=== PATIENT | female | born 1955 ===

== ENCOUNTER 2018-07-16 18:47 | Emergency (ER) | payer MEDICARE, MEDICAID ==
[2018-07-16 18:47] VITALS: BMI 29.0
[2018-07-16 19:59] LABS: BASO # 0.1 K/uL (0.0-0.2); BASO % 0.5 % (0.0-2.0); EOS % 0.1 % (0.0-4.0); HEMOGLOBIN 13.8 g/dL (12.0-16.0); LYMPH # 1.6 K/uL (1.0-4.3); LYMPH % 14.1 % (20.0-40.0); MEAN CELL VOLUME 79.3 fl (81.0-99.0); MEAN CORPUSCULAR HEMOGLOBIN 25.7 pg (27.0-31.0); MEAN CORPUSCULAR HGB CONC 32.4 g/dL (33.0-37.0); MEAN PLATELET VOLUME 8.2 fl (7.2-11.7); MONO # 1.1 K/uL (0.0-0.8); MONO % 9.7 % (0.0-10.0); NEUT # 8.3 K/uL (1.8-7.0); NEUT % 75.6 % (50.0-75.0); RBC 5.37 Mil/uL (3.80-5.20); RED CELL DISTRIBUTION WIDTH 16.2 % (11.5-14.5)
[2018-07-16 20:07] LABS: ALB/GLOB RATIO 1.1 (1.0-2.1); ALBUMIN 4.8 g/dL (3.5-5.0); ALT/SGPT 32 U/L (9-52); AST/SGOT 48 U/L (14-36); BLOOD UREA NITROGEN 28 mg/dl (7-17); CALCIUM 9.5 mg/dL (8.4-10.2); GFR NON-AFRICAN AMERICAN 56
[2018-07-16 20:15] LABS: SQUAMOUS EPITHIAL 2 /hpf (0-5); URINE BACTERIA OCC (<OCC); URINE BILIRUBIN NEGATIVE (NEGATIVE); URINE BLOOD NEGATIVE (NEGATIVE); URINE CLARITY CLEAR (Clear); URINE COLOR YELLOW (YELLOW); URINE GLUCOSE (UA) NEG (NEGATIVE); URINE LEUKOCYTE ESTERASE NEG Leu/uL (Negative); URINE PROTEIN NEGATIVE (NEGATIVE)
[2018-07-16 20:35] LABS: B-TYPE NATRIURETIC PEPTIDE 36.2 pg/ml (0-900)
[2018-07-16 20:38] LABS: TROPONIN I 0.013 ng/mL (0.00-0.120)
--- NOTE | 2018-07-16 21:20 | ED PDOC ---
HPI: SOB/CHF/COPD Time Seen by Provider: 07/16/18 19:14 Chief Complaint (Nursing): Dizziness/Lightheaded Chief Complaint (Provider): Dizziness/Lightheaded History Per: Patient History/Exam Limitations: no limitations Onset/Duration Of Symptoms: Sudden Onset Current Symptoms Are (Timing): Still Present Additional Complaint(s): 63 year old female with past history of hypertension, anxiety, and depression, presents to the emergency department for an evaluation of high blood pressure associated with abdominal pain, palpitations, and shortness of breath that started 2 hours prior to arrival. At present, she reports resolution of the abdominal pain but additionally reports dyspnea on exertion and orthopnea. Patient states she is compliant with her blood pressure medications. She checked pressure upon onset then notes systolic at 200mmHg, subsequently, taking an ext ra dose of medication. Blood pressure is presently improved in ED. Otherwise, she does not offer further complaints. PCP: Dr. Manuel Barrios Past Medical History Reviewed: Historical Data, Nursing Documentation, Vital Signs Vital Signs: Last Vital Signs Temp 98 F 07/16/18 18:49 Pulse 93 H 07/16/18 19:17 Resp 17 07/16/18 19:17 BP 153/82 H 07/16/18 19:17 Pulse Ox 100 07/16/18 19:17 - Medical History PMH: Anxiety, Asthma, COPD, Diabetes, HTN, Hypercholesterolemia Denies: Arthritis, CHF, Hypothyroidism, Chronic Kidney Disease, Rheumatoid Arthritis - Family History Family History: States: Unknown Family Hx - Social History Current smoker - smoking cessation education provided: Yes SMOKER/PACKS PER DAY:: 1 - Home Medications Home Medications: Ambulatory Orders Medication Instructions Recorded Enalapril Maleate/Hydrochlor 1 tab PO DAILY 10/28/14 [Enalapril/Hctz 10 mg-25 mg] Escitalopram [Lexapro] 20 mg PO DAILY 10/28/14 Esomeprazole Magnesium [Nexium] 40 mg PO DAILY 10/28/14 QUEtiapine [Seroquel XR] 400 mg PO HS 10/28/14 Zolpidem Tartrate [Ambien] 10 mg PO HS PRN 10/28/14 Albuterol 0.083% [Albuterol 0.083% 3 ml IH Q4 PRN #30 neb 10/29/14 Inhal [place] (2.5 mg/3 ml) UD] Clobetasol Propionate 1 appl TOP DAILY 04/09/15 Ciprofloxacin [Cipro] 500 mg PO Q12H #24 tab 04/10/15 Metronidazole 500 mg PO Q8H #36 tab 04/10/15 Albuterol HFA [Ventolin HFA 90 1 - 2 puff IH Q6 PRN #1 inhaler 07/16/18 mcg/actuation (8 g)] Azithromycin [Zithromax] 250 mg PO QAM #1 pkg 07/16/18 Methylprednisolone [Medrol Dosepak] 4 mg PO ASDIR #1 pkg 07/16/18 - Allergies Allergies/Adverse Reactions: Allergies Allergy/AdvReac Type Severity Reaction Status Date / Time aspirin Allergy RASH Verified 07/16/18 18:49 codeine Allergy RASH Verified 07/16/18 18:49 Penicillins Allergy RASH Verified 07/16/18 18:49 Review of Systems ROS Statement: Except As Marked, All Systems Reviewed And Found Negative Cardiovascular: Positive for: Palpitations Respiratory: Positive for: Shortness of Breath, SOB with Exertion, Other (orthopnea) Gastrointestinal: Positive for: Abdominal Pain (resolved) Physical Exam - Reviewed Nursing Documentation Reviewed: Yes Vital Signs Reviewed: Yes - Physical Exam Appears: Positive for: Non-toxic, No Acute Distress Head Exam: Positive for: ATRAUMATIC, NORMAL INSPECTION, NORMOCEPHALIC Skin: Positive for: Normal Color Eye Exam: Positive for: Normal appearance, EOMI, PERRL ENT: Positive for: Normal ENT Inspection. Negative for: Pharyngeal Erythema Neck: Positive for: Normal, Supple Cardiovascular/Chest: Positive for: Chest Non Tender, Tachycardia Respiratory: Positive for: Normal Breath Sounds. Negative for: Respiratory Distress Gastrointestinal/Abdominal: Positive for: Normal Exam, Soft. Negative for: Tenderness Back: Positive for: Normal Inspection Extremity: Positive for: Normal ROM (upper/lower). Negative for: Pedal Edema, Calf Tenderness Neurological/Psych: Positive for: Awake, Alert, Normal Tone. Negative for: Motor/Sensory Deficits - Laboratory Results Result Diagrams: 07/16/18 19:53 07/16/18 19:53 Lab Results: Troponin I 0.0130 ng/mL (0.00-0.120) 07/16/18 20:07 NT-Pro-B Natriuret Pep 36.2 pg/ml (0-900) 07/16/18 20:07 Total Bilirubin 0.7 mg/dl (0.2-1.3) 07/16/18 19:53 AST 48 U/L (14-36) H 07/16/18 19:53 ALT 32 U/L (9-52) 07/16/18 19:53 Alkaline Phosphatase 137 U/L (38-126) H 07/16/18 19:53 Total Protein 9.2 G/DL (6.3-8.2) H 07/16/18 19:53 Albumin 4.8 g/dL (3.5-5.0) 07/16/18 19:53 Globulin 4.3 gm/dL (2.2-3.9) H 07/16/18 19:53 Albumin/Globulin Ratio 1.1 (1.0-2.1) 07/16/18 19:53 Urine Color Yellow (YELLOW) 07/16/18 19:53 Urine Clarity Clear (Clear) 07/16/18 19:53 Urine pH 6.0 (5.0-8.0) 07/16/18 19:53 Ur Specific [place] 1.016 (1.003-1.030) 07/16/18 19:53 Urine Protein Negative mg/dL (NEGATIVE) 07/16/18 19:53 Urine Glucose (UA) Neg mg/dL (NEGATIVE) 07/16/18 19:53 Urine Ketones Negative mg/dL (NEGATIVE) 07/16/18 19:53 Urine Blood Negative (NEGATIVE) 07/16/18 19:53 Urine Nitrate Negative (NEGATIVE) 07/16/18 19:53 Urine Bilirubin Negative (NEGATIVE) 07/16/18 19:53 Urine Urobilinogen 2.0 mg/dL (0.2-1.0) H 07/16/18 19:53 Ur Leukocyte Esterase Neg Savita/uL (Negative) 07/16/18 19:53 Urine RBC (Auto) 1 /hpf (0-3) 07/16/18 19:53 Urine Microscopic WBC 1 /hpf (0-5) 07/16/18 19:53 Ur Squamous Epith Cells 2 /hpf (0-5) 07/16/18 19:53 Urine Bacteria Occ (<OCC) H 07/16/18 19:53 - ECG O2 Sat by Pulse Oximetry: 100 (RA) Pulse Ox Interpretation: Normal Medical Decision Making Medical Decision Making: Initial Impression: 63 year old female with exertional dyspnea and palpitation. Initial Plan: * EKG * Labs * CXR Time: 2217 --Labs reviewed: (-) significant clinical abnormality. Upon provider reevaluation, patient is medically stable, reports improvement in symptoms after Duoneb treatments, and requires no further treatment in the ED at this time. Provider discussed, at length, the importance of smoking cessation with patient and advised follow up in [place]. Counseling was provided and all questions were answered regarding diagnosis. There is agreement to discharge plan. Return if symptoms persist or worsen. Clinical Impression: Bronchitis Scribe Attestation: Documented by Arabella Robertson, acting as a scribe for Ebony Henderson MD. Provider Scribe Attestation: All medical record entries made by the Scribe were at my direction and personally dictated by me. I have reviewed the chart and agree that the record accurately reflects my personal performance of the history, physical exam, medical decision making, and the department course for this patient. I have also personally directed, reviewed, and agree with the discharge instructions and disposition. Disposition - Clinical Impression Clinical Impression: Bronchitis - Patient ED Disposition Is Patient to be Admitted: No Counseled Patient/Family Regarding: Studies Performed, Diagnosis, Need For Followup, Rx Given - Disposition Disposition: Routine/Home Disposition Time: 22:18 Condition: IMPROVED Prescriptions: Albuterol HFA [Ventolin HFA 90 mcg/actuation (8 g)] 1 - 2 puff IH Q6 PRN #1 inhaler PRN Reason: Shortness Of Breath Azithromycin [Zithromax] 250 mg PO QAM #1 pkg Methylprednisolone [Medrol Dosepak] 4 mg PO ASDIR #1 pkg Instructions: Acute Bronchitis Forms: [employer] ([place]ian)
[2018-07-16] MEDS ORDERED: Albuterol-Ipratrop 3 mg / 0.5 (3 ml) UD INH STA (21:32)
[2018-07-16 22:14] VITALS: BP 157/85; PULSE 90; RESP 18; TEMP 98.4
[2018-07-16 22:25] VITALS: O2SAT 100
--- NOTE | 2018-07-17 09:14 | CARD ---
APPROVED REPORT Date of service: 07/16/2018 EKG Measurement Heart [id number] <Conclusion> Normal sinus rhythm T wave abnormality, consider inferior ischemia T wave abnormality, consider anterolateral ischemia Abnormal ECG
--- NOTE | 2018-07-17 14:37 | RAD ---
Date of service: 07/16/2018 HISTORY: sob COMPARISON: Comparison is made with 10/28/2014 TECHNIQUE: 1 view obtained. FINDINGS: LUNGS: No active pulmonary disease. PLEURA: No significant pleural effusion identified, no pneumothorax apparent. CARDIOVASCULAR: No aortic atherosclerotic calcification present. Normal cardiac size. No pulmonary vascular congestion. OSSEOUS STRUCTURES: No significant abnormalities. VISUALIZED UPPER ABDOMEN: Normal. OTHER FINDINGS: None. IMPRESSION: No active disease.
== END 2018-07-16 22:10 | disposition home or self-care (01) ==
LOC: H.ER 18:47
DX: J40 Bronchitis, not specified as acute or chronic (principal); E11.9 Type 2 diabetes mellitus without complications; E78.00 Pure hypercholesterolemia, unspecified; F41.9 Anxiety disorder, unspecified; I10 Essential (primary) hypertension; Z88.0 Allergy status to penicillin; Z79.899 Other long term (current) drug therapy; R00.2 Palpitations; F17.210 Nicotine dependence, cigarettes, uncomplicated; J44.9 Chronic obstructive pulmonary disease, unspecified